=== PATIENT | female | born 1970 | race Caucasian/White ===

== ENCOUNTER 2016-11-26 15:12 | Inpatient (IN) | payer OTHER, SELFPAY ==
--- NOTE | ~2016-11-26 | DS ---
Discharge Summary [facility] [place]. [address] NAME: ELISA NESS : 74 STATUS : DIS IN PAT#: [id number] AGE: 46 ADM/REG DATE : 11/26/16 MR#: [id number] REPORT SERV DATE: 12/02/16 DICTATED BY: JOLLY MORLEY DATE: 12/01/16 REPORT STATUS : Draft TRANSCRIBED BY: ALBARO DATE: 12/01/16 ADMISSION DATE: 11/26/2016 DISCHARGE DATE: 12/01/2016 CONSULTATIONS: 1. Psychiatry, Dr. Manan Miller. 2. Gastroenterology, Dr. Stephen Dale. DISCHARGE DIAGNOSES: 1. Suicidal attempt. 2. Tylenol overdose. 3. Hepatotoxicity due to Tylenol overdose. 4. Systemic inflammatory response secondary to non-infectious etiology, likely related to hepatic injury. 5. Major depression. 6. Bipolar disorder type 2. 7. Chronic pain syndrome. 8. Chronic back pain. 9. Chronic opioid use. 10.Irritable bowel syndrome. DISCHARGE CONDITION: Stable. INVASIVE PROCEDURE: None. HISTORY OF PRESENT ILLNESS: For detailed HPI, please make reference to Dr. John Collado's dictation on 11/26/2016. In brief, this is a 46-year-old female with past medical history of chronic back pain, on chronic opioids (hydrocodone/acetaminophen), prior suicidal attempts, bipolar disorder, who was brought to the hospital by her mom because she attempted to commit suicide by taking over 100 pills of hydrocodone with acetaminophen. On presentation, she was noted to be confused, tremulous, having associated nausea, and abdominal discomfort. In the ER, blood pressure was 139/98, temperature was 97 beats per minute, respiratory rate of 16 cycles per minute, saturating 88% on room air. She was placed on 2 L of oxygen, saturation improved to 90s. Physical exam reveals a pinpoint pupil. No scleral icterus, acyanotic, not pale. Neurological exam reveals slow reactions with tremors bilaterally. Mild asterixis with slow mental response. EKG was sinus rhythm, QTc 467. Urine drug screen positive for opioids. Tylenol level 95.5. Salicylate level negative. Alcohol negative. AST 181, ALT 74, total bilirubin 0.5. Platelets 378. INR 1.2. An assessment of suicidal attempt secondary to Tylenol overdose with hepatic injury was made in the ER. The patient was admitted to the Hospitalist Service. HOSPITAL COURSE: 1. Tylenol overdose. The patient was started on acetylcysteine. Serial liver enzymes were monitored. The patient's AST and ALT gradually trended down. Repeat acetaminophen level also trended down. The patient had no evidence of hepatic failure. Ammonia level was slightly elevated. The patient received lactulose with good Discharge Summary [address] [address] NAME: ELISA NESS : 74 STATUS : DIS IN PAT#: [id number] AGE: 46 ADM/REG DATE : 11/26/16 MR#: [id number] REPORT SERV DATE: 12/02/16 DICTATED BY: JOLLY MORLEY DATE: 12/01/16 REPORT STATUS : Draft TRANSCRIBED BY: ALBRAO DATE: 12/01/16 response, and mental status continued to improve during the course of admission. At the time of discharge, she was alert and oriented x4. 2. Systemic inflammatory response. The patient's white blood cell on presentation was 18.3 and blood cultures were obtained. Urine cultures were obtained. Chest x-ray showed no acute inflammatory response. Procalcitonin was also significantly elevated. The patient was started on empiric IV antibiotics. Blood cultures yielded no growth. Chest x-ray showed no acute cardiopulmonary process. Urinalysis was essentially negative. No source of infection was identified, likely etiology of systemic inflammatory response was due to liver toxicity secondary to Tylenol overdose. Sepsis was ruled out in this patient prior to discharge. 3. Suicidal attempt. The patient has extensive history of bipolar disorder with previous suicidal attempts. Psychiatry was consulted during the course of this admission. The patient's medications were adjusted. She was placed back on lisinopril 10 mg p.o. daily. Prior to discharge, the patient voices no further suicidal ideation or homicidal ideation. The patient was cleared by Psychiatry from suicidal attempt point of view and was stable enough for discharge. At the time of discharge, the patient reinforced that she will never take acetaminophen/hydrocodone again and will follow up with her primary psychiatrist as an outpatient. 4. Diarrhea, likely related to lactulose use. The patient had multiple episodes of loose stools. The patient's ammonia trended down. No evidence of hepatic encephalopathy. However, the patient's ammonia improved. The patient's cognitive function also improved. 5. Hypokalemia secondary to diarrhea. The patient's potassium was repleted as needed throughout the course of this admission. At the time of discharge, the patient's potassium was within normal limits. DISCHARGE MEDICATIONS: Lisinopril 10 mg p.o. daily. DISCHARGE DISPOSITION: Home under the supervision of mom. DISCHARGE ACTIVITY: As tolerated. DISCHARGE FOLLOWUP: 1. Follow up with primary psychiatrist within one to two weeks of discharge. 2. Follow up with primary care physician within one to two weeks of discharge. Greater than 30 minutes was used to prepare this patient's discharge, reconcile medication, advise the patient on discharge plans and followup. DICTATED BY: MD TERESA Gonzalez/ALBARO Discharge Summary [address] [address] NAME: ELISA NESS : 74 STATUS : DIS IN PAT#: [id number] AGE: 46 ADM/REG DATE : 11/26/16 MR#: [id number] REPORT SERV DATE: 12/02/16 DICTATED BY: JOLLY MORLEY DATE: 12/01/16 REPORT STATUS : Draft TRANSCRIBED BY: ALBARO DATE: 12/01/16 Jolly Morley MD / [id number] CC: MD Anthony Gonzalez M.D.
--- NOTE | ~2016-11-26 | CN ---
Consultation Report [facility] [address] [place]. [address] NAME: ELISA NESS : 74 STATUS : ADM IN PAT#: [id number] AGE: 46 ADM/REG DATE : 11/26/16 MR#: [id number] REPORT SERV DATE: 11/28/16 DICTATED BY: MANAN SARABIA DATE: 11/28/16 REPORT STATUS : Draft TRANSCRIBED BY: MODRudy DATE: 11/28/16 PSYCHIATRIC CONSULTATION DATE OF CONSULTATION: 11/28/2016 I reviewed this patient's medical record. I discussed the patient's status with her mother who was at the bedside. HISTORY OF PRESENT ILLNESS: She was admitted with mental status change after she overdosed on hydrocodone/APAP. Her acetaminophen level was 95.5, and she had elevated liver enzymes. MEDICATIONS: Her home medication list included Saphris 20 mg sublingually q.h.s., Lexapro 40 mg daily, Lunesta 3 mg h.s., Trileptal 300 mg b.i.d., and hydrocodone/APAP 7.5/325 q.6 hours p.r.n. PAST PSYCHIATRIC HISTORY: She was followed by the [facility] where she sees a nurse practitioner. She has a history of recurring bouts of depression and episodic insomnia. She has never had any clear-cut manic episode. The patient now tells me that she had stopped taking Saphris a few months ago because she was experiencing some unspecified adversive response to it. She now realizes this was a mistake and she is motivated to take it again as it apparently had a mood stabilizing effect. Over the years, she has had three previous overdoses. She had one brief admission to [facility] a few years ago, but she signed herself out after one day. She strongly wishes to avoid returning to an inpatient psychiatric setting. SOCIAL HISTORY: She has been in her current marriage for 15 years. This is her fourth marriage. She has one son aged 13 years. She described some friction in the marital relationship. She feels her tends to blame her for her mood instability. He does not seem to grasp the concept of an illness, which she has limited ability to control. FAMILY HISTORY: Her father had bipolar disorder. Her brother who committed suicide also had bipolar disorder. MENTAL STATUS: She was awake and alert. She was cooperative in attitude. She strongly denied any current suicidal intent or plan. Her mood was somewhat dysphoric. Her affect was full and appropriate. Her thinking was logical. She had no delusions. She had no hallucinations. She was oriented to time, place, and person. She demonstrated good recent and remote memory. She explained that she planned to totally avoid taking any opioid medications in the future. DIAGNOSIS: Bipolar II disorder, by history. RECOMMENDATIONS: I will see her for a followup visit tomorrow. At this time, we can discontinue the suicide precautions. Most likely, she can be discharged to home, but I will reassess this decision tomorrow. As soon as the hospitalist agrees, I will restart the Consultation Report [address] [place]. [address] NAME: ELISA NESS : 74 STATUS : ADM IN PAT#: [id number] AGE: 46 ADM/REG DATE : 11/26/16 MR#: [id number] REPORT SERV DATE: 11/28/16 DICTATED BY: MANAN SARABIA. DATE: 11/28/16 REPORT STATUS : Draft TRANSCRIBED BY: ALBARO DATE: 11/28/16 Saphris, Trileptal, and Lunesta. We will restart the Lexapro at a much lower dose of 20 mg daily. I will follow up. JAYSON/ALBARO Manan Sarabia M.D. / [id number] CC: MD Anthony Car M.D.
--- NOTE | ~2016-11-26 | HP ---
History And Physical [facility] [address] [facility] [place]. [address] NAME: ELISA NESS : 74 STATUS : ADM IN [facility]#: [id number] AGE: 46 ADM/REG DATE : 11/26/16 MR#: [id number] REPORT SERV DATE: 11/26/16 DICTATED BY: PAIGE COLLADO DATE: 11/26/16 REPORT STATUS : Draft TRANSCRIBED BY: ALBARO DATE: 11/26/16 DATE OF ADMISSION: 11/26/2016 CHIEF COMPLAINT: Hydrocodone overdose intentional. HISTORY OF PRESENT ILLNESS: The patient is accompanied with her mother at bedside. The patient is a 46-year-old female with past medical history of chronic back pain on chronic opioids and depression, who is reported to be slightly more confused earlier today when mother noticed that she had taken excessive hydrocodone. The patient does admit that this was an overdose attempt but does not know how much she took; bottle was supposed to have at least 100 hydrocodone, and she had completely finished a bottle at this point. Additionally she is unsure of all these medications taken today or over the last few days as the patient already had been having signs of mild nausea with tremulousness. The patient is minimally interactive but does feel kind of a dazed type of sensation. There is no current pain, severity is very severe at this time without radiating symptoms. She does have mild nausea, but no vomiting. No shortness of breath, chills, or fevers but does have mild sweating on face and tremors with suicidal ideation. The patient reports that she has been having some marital issues per her mother which appears to be a triggering factor. Never has performed any such episode as this without any worsened symptoms or relieving symptoms. The patient is minimally tolerating p.o. N-acetylcysteine has been given in the emergency room. For 10-point review of systems, the patient essentially denies hematuria review of systems except for mild sweating, tremors, and suicidal ideation with depression history but additional 10 point systems negative. PAST MEDICAL HISTORY: The patient does report to having depression and back pain, however, the remainder of the past medical history and review of systems mostly obtained from mother who is at bedside. SURGICAL HISTORY: . SOCIAL HISTORY: Denies any smoking, alcohol, or illicits. Does admit to having marital problems. Does have son named Evens who is 13 years old. The patient is unable to recollect his age as she reports he is 12. FAMILY HISTORY: Depression in the father's side. Heart disease in the mother's side. ALLERGIES: NO KNOWN DRUG ALLERGIES. MEDICATIONS: Saphris; Lexapro; Lunesta; Mattoon; Trileptal. With review from the patient's prior MARS, the patient was previously on 10/325 mg Mattoon last year, has been dropped down to 7.5 q.6 from q.8 schedule of 10 under the care of pain management. PHYSICAL EXAMINATION: VITAL SIGNS: The patient's blood pressure 139/98, temperature 97, pulse 97, respirations History And Physical [address] [address] NAME: ELISA NESS : 74 STATUS : ADM IN PAT#: [id number] AGE: 46 ADM/REG DATE : 11/26/16 MR#: [id number] REPORT SERV DATE: 11/26/16 DICTATED BY: PAIGE COLLADO DATE: 11/26/16 REPORT STATUS : Draft TRANSCRIBED BY: MODRudy DATE: 11/26/16 18, and O2 sats 88% on room air at 90% on 2 L. GENERAL: Appears older than stated age. Obese. Currently kind of blank stare. HEENT: Eyes still pinpoint. No scleral icterus. ENT, nares patent. No cobblestoning. RESPIRATORY: Clear to auscultation. No wheezes. CV: Regular rate. No rubs. CHEST: Equal chest expansion. GI: Soft, nontender, and nondistended. No rebound. : Deferred. MUSCULOSKELETAL: Moves all extremities with mild tremors in hands bilaterally. SKIN: Warm and dry, but mild sweating on nose. HEMATOLOGIC: No bleeding or bruising. NEUROLOGIC: Slow to reactions with tremors bilaterally. Mild shaking asterixis. No nystagmus. Slow mental response. Symmetrical smile. Does have occasional laugh at jokes and will respond to simple questions. PSYCHIATRIC: Oriented to person, place, and situation without hallucinations but does admit to having suicidal ideation. Fairly flat affect at this time. DATA: EKG rate 95, normal sinus rhythm, QTc of 467. Drug screen positive for opioids, otherwise negative. screen negative. Sodium 140, potassium 3.7, BUN and creatinine 9 and 1.01, glucose 133, calcium 9.1, total protein 8.6, AST and ALT 181 and 74. Tylenol 95.5. Salicylate level negative. Alcohol level negative. Alkaline phosphatase 67, T-bilirubin 0.5. CBC: WBC count 18.3, H and H 15 and 45.7, and platelets 378. ASSESSMENT AND PLAN: 1. Tylenol overdose. 2. Liver injury. 3. Suicide attempt. 4. Hypoxia. 5. SIRS. PLAN: 1. For Tylenol overdose, liver injury, does appear to have acute liver injury, unclear timeframe at least since 9 o'clock. The patient has taken Tylenol levels, the patient not tolerating N-acetylcysteine by p.o. monitor closely with IV. Monitor EKG, CMPs, lactate, and obtain ammonia level. Due to the patient's concurrent liver injury, the patient does have LFT elevations. We will check hepatitis panel. I am suspecting that the patient may have taken doses earlier as the liver in injury is already affecting liver changes. We will try to hydrate. Check ammonia level. Monitor supportively. GI consultation. Unfortunately, we will have to closely and consciously monitor. 2. Suicide attempt. Psychiatric consultation will see her when appropriate. Discussed with the ED staff and family. 3. Hypoxia on 2 L by nasal cannula, mild hypoxia but acute. Monitor. 4. SIRS with tachycardia and leukocytosis additionally like secondary to #1. Monitor. Check UA. No reported recent aspiration or respiratory issues. No acute signs of infection per the patient. Close monitoring. Extremely guarded prognosis with possible requirements for ICU if continued liver and possible multiorgan failure may be imminent at this time as the patient was maintaining vital signs, mental status. We will monitor closely on the floor with a one-to-one sitter. Family has been updated. History And Physical [address] [address] NAME: ELISA NESS : 74 STATUS : ADM IN [facility]#: [id number] AGE: 46 ADM/REG DATE : 11/26/16 MR#: [id number] REPORT SERV DATE: 11/26/16 DICTATED BY: PAIGE COLLADO DATE: 11/26/16 REPORT STATUS : Draft TRANSCRIBED BY: ALBARO DATE: 11/26/16 Mother at bedside if the patient approves of having information. DDN/ALBARO Paige Collado MD / [id number] CC: Paige Collado MD
--- NOTE | ~2016-11-26 | CN ---
Consultation Report [id number] [place]. [address] NAME: ELISA NESS : 74 STATUS : ADM IN [facility]#: [id number] AGE: 46 ADM/REG DATE : 11/26/16 MR#: [id number] REPORT SERV DATE: 11/27/16 DICTATED BY: NEISHA MEDINA DATE: 11/27/16 REPORT STATUS : Draft TRANSCRIBED BY: MODL DATE: 11/27/16 CONSULTATION NOTE DATE OF CONSULTATION: 11/27/2016 HISTORY OF PRESENT ILLNESS: Mrs. Kirk is a 46-year-old white female, whom I am seen for Dr. Preeti Anand, admitted with overdose of hydrocodone and Tylenol and had previous suicide attempts. She is followed by Psychiatry for depression, also has osteoarthritis on pain medicine for pain management, also a long history of irritable bowel. She had nausea and vomiting last night that has improved with some bloating of gas. No bleeding. No fever. PAST SURGICAL HISTORY: Status post hysterectomy. SOCIAL HISTORY: Negative for EtOH or nicotine. FAMILY HISTORY: Positive for colon cancer. LABORATORY DATA: White count 17,000, hemoglobin 12.9, platelets 328,000. Total bilirubin , alkaline phos 47, ALT 86, AST 162. Ammonia normal at 25. Tylenol level normal today at 11.5, also decrease in her TSH. PHYSICAL EXAMINATION: GENERAL: Well-developed and alert white female. HEENT: Anicteric. NECK: Negative. CHEST: Clear to auscultation and percussion. HEART: Regular rate and rhythm. No murmur or gallop. ABDOMEN: Soft, nontender. Present bowel sounds active. EXTREMITIES: Grossly intact. NEUROLOGIC: Grossly intact. ASSESSMENT: 1. Tylenol, hydrocodone, LFTs today. 2. Depression with previous suicide attempts. 3. Osteoarthritis and chronic pain, followed by pain management. 4. Irritable bowel syndrome. SUGGESTIONS: 1. Continue acetylcysteine. 2. Continue to follow up LFTs, ammonia, pro time. 3. Will need to see Psychiatry prior to discharge as well. Dr. Anand back in the a.m. Thank you for the consultation. Consultation Report [facility] [address] [place]. [address] NAME: ELISA NESS : 74 STATUS : ADM IN PAT#: [id number] AGE: 46 ADM/REG DATE : 11/26/16 MR#: [id number] REPORT SERV DATE: 11/27/16 DICTATED BY: NEISHA MEDINA DATE: 11/27/16 REPORT STATUS : Draft TRANSCRIBED BY: ALBARO DATE: 11/27/16 DC/ALBARO Neisha Medina M.D. / [id number] CC: MD Preeti Car MD
[2016-11-26 14:44] LABS: BASOPHILS 0.2 %; BASOPHILS ABSOLUTE 0.03 10/3/uL (0.0-0.16); EOSINOPHILS 0 %; HEMATOCRIT 45.7 % (36.0-48.0); IMMATURE GRANULOCYTES 0.3 %; IMMATURE GRANULOCYTES ABSOLUTE 0.05 10/3/uL (0.0-0.11); LYMPHOCYTES ABSOLUTE 1.83 10/3/uL (0.67-4.30); MANUAL DIFF NO %; MEAN CORPUS HGB CONC 32.8 g/dL (32.0-36.0); MEAN CORPUSCULAR HEMOGLOB 29.6 pg (26.0-34.0); MEAN CORPUSCULAR VOLUME 90.3 fL (80-100); MEAN PLATELET VOLUME 10.3 fL (9.2-13.0); MONOCYTES 6.2 %; MONOCYTES ABSOLUTE 1.13 10/3/uL (0.21-1.20); NEUTROPHILS 83.3 %; NEUTROPHILS ABSOLUTE 15.25 10/3/uL (2.02-8.40); PLATELET COUNT 378 10/3/uL (150-400); RBC DISTRIBUTION WIDTH 14.6 % (12.0-16.0); RED CELL COUNT 5.06 10/6/uL (4.0-5.6); WHITE BLOOD CELLS 18.3 10/3/uL (4.5-10.5)
[2016-11-26 15:09] LABS: ALBUMIN 4.4 G/DL (3.5-5.0); ALKALINE PHOSPHATASE 67 U/L (45-117); BUN (BLOOD UREA NITROGEN) 9 MG/DL (6-23); CALCIUM, SERUM 9.1 MG/DL (8.5-10.4); CHLORIDE, SERUM 102 MMOL/L (96-112); CO2 (CARBON DIOXIDE) 26 MMOL/L (24-34); CREATININE 1.01 MG/DL (0.55-1.02); GFR AFRICAN AMERICAN 78 ML/MIN (>=60); GFR NON AFRICAN AMERICAN 68 ML/MIN (>=60); GLOBULIN 4.2 G/DL (2.5-4.1); GLUCOSE, SERUM 133 MG/DL (60-99); POTASSIUM, SERUM 3.7 MMOL/L (3.5-5.3); SGOT(AST) 181 U/L (5-40); SGPT(ALT) 74 U/L (5-65); SODIUM, SERUM 140 MMOL/L (135-148); TOTAL BILIRUBIN 0.5 MG/DL (0-1.2); TOTAL PROTEIN 8.6 G/DL (6.0-8.5)
[2016-11-26 15:10] LABS: ACETAMINOPHEN LEVEL (TYLENOL) 95.5 MCG/ML (10.0-20.0); ALCOHOL < 10 MG/DL (0); SALICYLATE < 1.7 MG/DL (-)
[2016-11-26] MEDS ORDERED: LEXAPRO20 PO (15:43)
[2016-11-26] MEDS ORDERED: TRILEP300 PO (15:43)
[2016-11-26] MEDS ORDERED: NORCO1 TA2 PO (15:44)
[2016-11-26] MEDS ORDERED: SAPHRIS10 MG SL (15:44)
[2016-11-26] MEDS ORDERED: LUNESTA3 MG PO (15:44)
[2016-11-26 16:47] LABS: AMPHETAMINES (NOT ORD) NEG (NEG); BARBITURATES (NOT ORDERED NEG (NEG); BENZODIAZEPINES (NOT ORD) NEG (NEG); CANNABINOIDS (THC) NEG (NEG); COCAINE (NOT ORDERED) NEG (NEG); OPIATES POS (NEG); PHENCYCLIDINE(PCP) NEG (NEG); TRICYCLICS NEG (NEG)
[2016-11-26 17:31] LABS: LACTATE 1.4 MMOL/L (0.3-2.4)
[2016-11-26 21:11] LABS: PROCALCITONIN 12.27 ng/mL (<0.5)
[2016-11-27 07:14] LABS: BASOPHILS 0.2 %; BASOPHILS ABSOLUTE 0.04 10/3/uL (0.0-0.16); EOSINOPHILS 0.1 %; EOSINOPHILS ABSOLUTE 0.01 10/3/uL (0.0-0.53); HEMOGLOBIN 12.9 g/dL (12.0-16.0); IMMATURE GRANULOCYTES 0.4 %; IMMATURE GRANULOCYTES ABSOLUTE 0.06 10/3/uL (0.0-0.11); LYMPHOCYTES 14.2 %; MEAN CORPUS HGB CONC 32.1 g/dL (32.0-36.0); MEAN CORPUSCULAR HEMOGLOB 28.6 pg (26.0-34.0); MEAN CORPUSCULAR VOLUME 89.1 fL (80-100); MEAN PLATELET VOLUME 10.5 fL (9.2-13.0); MONOCYTES 4.4 %; MONOCYTES ABSOLUTE 0.75 10/3/uL (0.21-1.20); NEUTROPHILS 80.7 %; NEUTROPHILS ABSOLUTE 13.69 10/3/uL (2.02-8.40); PLATELET COUNT 328 10/3/uL (150-400); RBC DISTRIBUTION WIDTH 14.7 % (12.0-16.0); RED CELL COUNT 4.51 10/6/uL (4.0-5.6)
[2016-11-27 07:16] LABS: HEMATOCRIT 40.2 % (36.0-48.0); MANUAL DIFF NO %
[2016-11-27 07:33] LABS: A/G RATIO 0.9 (0.7-1.9); ACETAMINOPHEN LEVEL (TYLENOL) 11.5 MCG/ML (10.0-20.0); ALBUMIN 3.3 G/DL (3.5-5.0); ALKALINE PHOSPHATASE 47 U/L (45-117); BUN (BLOOD UREA NITROGEN) 6 MG/DL (6-23); CALCIUM, SERUM 8.3 MG/DL (8.5-10.4); CHLORIDE, SERUM 104 MMOL/L (96-112); CO2 (CARBON DIOXIDE) 29 MMOL/L (24-34); CREATININE 0.66 MG/DL (0.55-1.02); DIRECT BILIRUBIN 0.1 MG/DL (0.0-0.4); GFR AFRICAN AMERICAN 125 ML/MIN (>=60); GFR NON AFRICAN AMERICAN 107 ML/MIN (>=60); GLOBULIN 3.5 G/DL (2.5-4.1); GLUCOSE, SERUM 97 MG/DL (60-99); INDIRECT BILIRUBIN(NOT ORDER) 0.8 MG/DL (0.1-0.9); POTASSIUM, SERUM 3.5 MMOL/L (3.5-5.3); SGOT(AST) 162 U/L (5-40); SGPT(ALT) 86 U/L (5-65); SODIUM, SERUM 141 MMOL/L (135-148); TOTAL BILIRUBIN 0.9 MG/DL (0-1.2); TOTAL PROTEIN 6.8 G/DL (6.0-8.5); ULTRASENSITIVE TSH 0.117 MCIU/ML (0.358-3.740)
[2016-11-28 07:53] LABS: BASOPHILS 0.1 %; BASOPHILS ABSOLUTE 0.01 10/3/uL (0.0-0.16); EOSINOPHILS 0 %; HEMOGLOBIN 11.2 g/dL (12.0-16.0); IMMATURE GRANULOCYTES 0.2 %; IMMATURE GRANULOCYTES ABSOLUTE 0.02 10/3/uL (0.0-0.11); LYMPHOCYTES 13.1 %; LYMPHOCYTES ABSOLUTE 1.47 10/3/uL (0.67-4.30); MEAN CORPUS HGB CONC 32.2 g/dL (32.0-36.0); MEAN CORPUSCULAR HEMOGLOB 28.9 pg (26.0-34.0); MEAN CORPUSCULAR VOLUME 89.7 fL (80-100); MEAN PLATELET VOLUME 10.3 fL (9.2-13.0); MONOCYTES 5.6 %; MONOCYTES ABSOLUTE 0.63 10/3/uL (0.21-1.20); NEUTROPHILS ABSOLUTE 9.09 10/3/uL (2.02-8.40); PLATELET COUNT 274 10/3/uL (150-400); RBC DISTRIBUTION WIDTH 14.6 % (12.0-16.0); RED CELL COUNT 3.88 10/6/uL (4.0-5.6); WHITE BLOOD CELLS 11.2 10/3/uL (4.5-10.5)
[2016-11-28 07:56] LABS: HEMATOCRIT 34.8 % (36.0-48.0); MANUAL DIFF NO %
[2016-11-28 08:00] LABS: INTERNATIONAL NORMAL RATI 1.2 UNITS (-)
[2016-11-28 08:34] LABS: ALBUMIN 3.1 G/DL (3.5-5.0); BUN (BLOOD UREA NITROGEN) 7 MG/DL (6-23); CALCIUM, SERUM 8.1 MG/DL (8.5-10.4); CHLORIDE, SERUM 103 MMOL/L (96-112); CO2 (CARBON DIOXIDE) 28 MMOL/L (24-34); CREATININE 0.84 MG/DL (0.55-1.02); FREE T4 1.27 NG/DL (0.76-1.46); GFR AFRICAN AMERICAN 98 ML/MIN (>=60); GFR NON AFRICAN AMERICAN 85 ML/MIN (>=60); SGOT(AST) 128 U/L (5-40); SGPT(ALT) 114 U/L (5-65); SODIUM, SERUM 137 MMOL/L (135-148); TOTAL BILIRUBIN 0.5 MG/DL (0-1.2)
[2016-11-28 08:35] LABS: ALKALINE PHOSPHATASE 37 U/L (45-117); DIRECT BILIRUBIN < 0.1 MG/DL (0.0-0.4); GLUCOSE, SERUM 127 MG/DL (60-99); INDIRECT BILIRUBIN(NOT ORDER) 0.4 MG/DL (0.1-0.9); POTASSIUM, SERUM 2.7 MMOL/L (3.5-5.3); ULTRASENSITIVE TSH 0.067 MCIU/ML (0.358-3.740)
[2016-11-28 08:59] LABS: PROCALCITONIN 109.52 ng/mL (<0.5)
[2016-11-29 04:50] LABS: BASOPHILS 0.3 %; BASOPHILS ABSOLUTE 0.03 10/3/uL (0.0-0.16); EOSINOPHILS 0.1 %; EOSINOPHILS ABSOLUTE 0.01 10/3/uL (0.0-0.53); HEMATOCRIT 34.1 % (36.0-48.0); HEMOGLOBIN 11.2 g/dL (12.0-16.0); IMMATURE GRANULOCYTES 0.7 %; IMMATURE GRANULOCYTES ABSOLUTE 0.08 10/3/uL (0.0-0.11); LYMPHOCYTES 20.8 %; LYMPHOCYTES ABSOLUTE 2.38 10/3/uL (0.67-4.30); MEAN CORPUS HGB CONC 32.8 g/dL (32.0-36.0); MEAN CORPUSCULAR HEMOGLOB 29.6 pg (26.0-34.0); MEAN PLATELET VOLUME 10.7 fL (9.2-13.0); MONOCYTES 7.4 %; MONOCYTES ABSOLUTE 0.85 10/3/uL (0.21-1.20); NEUTROPHILS 70.7 %; NEUTROPHILS ABSOLUTE 8.07 10/3/uL (2.02-8.40); PLATELET COUNT 273 10/3/uL (150-400); RBC DISTRIBUTION WIDTH 14.7 % (12.0-16.0); RED CELL COUNT 3.79 10/6/uL (4.0-5.6); WHITE BLOOD CELLS 11.4 10/3/uL (4.5-10.5)
[2016-11-29 04:51] LABS: MANUAL DIFF NO %
[2016-11-29 04:56] LABS: INTERNATIONAL NORMAL RATI 1.1 UNITS (-); PROTIME (NOT ORD) 14.2 SEC (12.0-14.5)
[2016-11-29 05:10] LABS: A/G RATIO 1.1 (0.7-1.9); ALBUMIN 3.1 G/DL (3.5-5.0); ALKALINE PHOSPHATASE 35 U/L (45-117); BUN (BLOOD UREA NITROGEN) 6 MG/DL (6-23); CHLORIDE, SERUM 108 MMOL/L (96-112); CO2 (CARBON DIOXIDE) 27 MMOL/L (24-34); CREATININE 0.85 MG/DL (0.55-1.02); GFR AFRICAN AMERICAN 97 ML/MIN (>=60); GFR NON AFRICAN AMERICAN 83 ML/MIN (>=60); GLOBULIN 2.9 G/DL (2.5-4.1); GLUCOSE, SERUM 105 MG/DL (60-99); SGOT(AST) 78 U/L (5-40); SGPT(ALT) 102 U/L (5-65); SODIUM, SERUM 142 MMOL/L (135-148); TOTAL BILIRUBIN 0.5 MG/DL (0-1.2)
[2016-11-29 05:13] LABS: POTASSIUM, SERUM 2.7 MMOL/L (3.5-5.3)
[2016-11-30 05:49] LABS: BASOPHILS 0.2 %; BASOPHILS ABSOLUTE 0.02 10/3/uL (0.0-0.16); EOSINOPHILS 0.5 %; EOSINOPHILS ABSOLUTE 0.05 10/3/uL (0.0-0.53); HEMATOCRIT 32.1 % (36.0-48.0); HEMOGLOBIN 10.5 g/dL (12.0-16.0); IMMATURE GRANULOCYTES 0.9 %; IMMATURE GRANULOCYTES ABSOLUTE 0.09 10/3/uL (0.0-0.11); LYMPHOCYTES 30.8 %; LYMPHOCYTES ABSOLUTE 3.18 10/3/uL (0.67-4.30); MEAN CORPUS HGB CONC 32.7 g/dL (32.0-36.0); MEAN CORPUSCULAR HEMOGLOB 29.2 pg (26.0-34.0); MEAN CORPUSCULAR VOLUME 89.2 fL (80-100); MEAN PLATELET VOLUME 10.7 fL (9.2-13.0); MONOCYTES 6.9 %; MONOCYTES ABSOLUTE 0.71 10/3/uL (0.21-1.20); NEUTROPHILS 60.7 %; NEUTROPHILS ABSOLUTE 6.28 10/3/uL (2.02-8.40); PLATELET COUNT 237 10/3/uL (150-400); RBC DISTRIBUTION WIDTH 14.6 % (12.0-16.0); WHITE BLOOD CELLS 10.3 10/3/uL (4.5-10.5)
[2016-11-30 05:51] LABS: MANUAL DIFF NO %
[2016-11-30 06:07] LABS: ALKALINE PHOSPHATASE 35 U/L (45-117); BUN (BLOOD UREA NITROGEN) 5 MG/DL (6-23); CALCIUM, SERUM 8.3 MG/DL (8.5-10.4); CHLORIDE, SERUM 107 MMOL/L (96-112); CO2 (CARBON DIOXIDE) 25 MMOL/L (24-34); GFR AFRICAN AMERICAN 122 ML/MIN (>=60); GFR NON AFRICAN AMERICAN 105 ML/MIN (>=60); GLOBULIN 2.9 G/DL (2.5-4.1); GLUCOSE, SERUM 91 MG/DL (60-99); SGOT(AST) 72 U/L (5-40); SGPT(ALT) 115 U/L (5-65); SODIUM, SERUM 141 MMOL/L (135-148); TOTAL BILIRUBIN 0.6 MG/DL (0-1.2); TOTAL PROTEIN 5.9 G/DL (6.0-8.5)
[2016-11-30 06:08] LABS: POTASSIUM, SERUM 2.6 MMOL/L (3.5-5.3)
[2016-11-30 07:17] LABS: PROCALCITONIN 13.96 ng/mL (<0.5)
[2016-11-30 15:47] LABS: ALBUMIN 3.4 G/DL (3.5-5.0); DIRECT BILIRUBIN 0.2 MG/DL (0.0-0.4); INDIRECT BILIRUBIN(NOT ORDER) 0.4 MG/DL (0.1-0.9); POTASSIUM, SERUM 2.9 MMOL/L (3.5-5.3); TOTAL BILIRUBIN 0.6 MG/DL (0-1.2); TOTAL PROTEIN 6.6 G/DL (6.0-8.5)
[2016-12-01 06:08] LABS: BASOPHILS 0.5 %; BASOPHILS ABSOLUTE 0.05 10/3/uL (0.0-0.16); HEMATOCRIT 34.9 % (36.0-48.0); HEMOGLOBIN 11.2 g/dL (12.0-16.0); IMMATURE GRANULOCYTES 1.4 %; IMMATURE GRANULOCYTES ABSOLUTE 0.14 10/3/uL (0.0-0.11); LYMPHOCYTES 32.1 %; LYMPHOCYTES ABSOLUTE 3.26 10/3/uL (0.67-4.30); MEAN CORPUS HGB CONC 32.1 g/dL (32.0-36.0); MEAN CORPUSCULAR HEMOGLOB 28.8 pg (26.0-34.0); MEAN CORPUSCULAR VOLUME 89.7 fL (80-100); MEAN PLATELET VOLUME 11.1 fL (9.2-13.0); MONOCYTES ABSOLUTE 0.71 10/3/uL (0.21-1.20); NEUTROPHILS ABSOLUTE 5.89 10/3/uL (2.02-8.40); PLATELET COUNT 269 10/3/uL (150-400); RBC DISTRIBUTION WIDTH 14.9 % (12.0-16.0); RED CELL COUNT 3.89 10/6/uL (4.0-5.6); WHITE BLOOD CELLS 10.2 10/3/uL (4.5-10.5)
[2016-12-01 06:09] LABS: MANUAL DIFF NO %
[2016-12-01 06:19] LABS: ALBUMIN 2.9 G/DL (3.5-5.0); ALKALINE PHOSPHATASE 44 U/L (45-117); BUN (BLOOD UREA NITROGEN) 4 MG/DL (6-23); CALCIUM, SERUM 8.3 MG/DL (8.5-10.4); CHLORIDE, SERUM 109 MMOL/L (96-112); CO2 (CARBON DIOXIDE) 26 MMOL/L (24-34); CREATININE 0.74 MG/DL (0.55-1.02); DIRECT BILIRUBIN 0.2 MG/DL (0.0-0.4); GFR AFRICAN AMERICAN 114 ML/MIN (>=60); GFR NON AFRICAN AMERICAN 99 ML/MIN (>=60); GLUCOSE, SERUM 108 MG/DL (60-99); INDIRECT BILIRUBIN(NOT ORDER) 0.3 MG/DL (0.1-0.9); POTASSIUM, SERUM 3.5 MMOL/L (3.5-5.3); SGOT(AST) 67 U/L (5-40); SGPT(ALT) 127 U/L (5-65); SODIUM, SERUM 142 MMOL/L (135-148); TOTAL BILIRUBIN 0.5 MG/DL (0-1.2); TOTAL PROTEIN 6.4 G/DL (6.0-8.5)
[2016-12-01] MEDS ORDERED: LEXAPRO10 PO (09:40)
[2016-12-01] MEDS ORDERED: KDUR20 PO (09:43)
== END 2016-12-01 10:29 | disposition home or self-care (01) | DRG 918 ==
LOC: ER 15:12 → 2SO 16:42 → 1SO 17:13
PROVIDERS: Emergency Medicine; Hospitalist; Student in an Organized Health Care Education/Training Program
DX: T39.1X2A Poisoning by 4-Aminophenol derivatives, intentional self-harm, initial encounter (principal); R65.10 Systemic inflammatory response syndrome (SIRS) of non-infectious origin without acute organ dysfunction; F31.81 Bipolar II disorder; M54.9 Dorsalgia, unspecified; E66.9 Obesity, unspecified; R74.8 Abnormal levels of other serum enzymes; Z68.35 Body mass index [BMI] 35.0-35.9, adult; G89.4 Chronic pain syndrome; E87.6 Hypokalemia; K58.0 Irritable bowel syndrome with diarrhea; R09.02 Hypoxemia; F11.90 Opioid use, unspecified, uncomplicated; Z79.899 Other long term (current) drug therapy; Z90.710 Acquired absence of both cervix and uterus; Z91.5 Personal history of self-harm
CPT/HCPCS: 71010; 76705; 80048; 80053; 80069; 80076; 80305; 80307; 82140; 82248; 83605; 83735; 84132; 84145; 84439; 84443; 84703; 85025; 85610; 93005; 99285; A9270-GY; G0480; J0132; J2405; J2543; J2550